=== PATIENT | male | born 1960 | race Caucasian/White ===

== ENCOUNTER 2024-07-05 11:33 | Day surgery (SDC) | payer OTHER ==
[2024-07-05] MEDS: SODIUM CHLORIDE 500 ML IV ONE (13:27)
[2024-07-05 15:45] VITALS: TEMP 98.5
[2024-07-05 16:00] VITALS: BP 129/73; PULSE 68; RESP 18
== END 2024-07-05 16:04 | disposition home or self-care (01) ==
LOC: JONCCHEMO 11:33 → J7W 11:52 → JONCCHEMO 16:04
PROVIDERS: ATTEND Internal Medicine Hematology & Oncology
PROC: 3E0337Z Introduction of Electrolytic and Water Balance Substance into Peripheral Vein, Percutaneous Approach (ICD-10-PCS; principal; 2024-07-05)
DX: Z51.11 Encounter for antineoplastic chemotherapy (principal); C92.10 Chronic myeloid leukemia, BCR/ABL-positive, not having achieved remission
CPT/HCPCS: 96360; 96361

== ENCOUNTER 2024-07-06 09:36 | Day surgery (SDC) | payer OTHER ==
[2024-07-06] MEDS: IMATINIB MESYLATE 100 MG TABLET PO ONE (10:00)
[2024-07-06] MEDS ORDERED: IMATINIB MESYLATE 100 MG TABLET PO ONE (10:00)
[2024-07-06] MEDS: SODIUM CHLORIDE 500 ML IV ONE (10:22)
[2024-07-06 15:54] VITALS: RESP 20; TEMP 98.2
[2024-07-07 08:56] VITALS: BP 118/67; PULSE 64
== END 2024-07-06 13:40 | disposition home or self-care (01) ==
LOC: J7W 09:36 → JONCNONCHE 09:36
PROVIDERS: ATTEND Internal Medicine Hematology & Oncology
PROC: 3E0337Z Introduction of Electrolytic and Water Balance Substance into Peripheral Vein, Percutaneous Approach (ICD-10-PCS; principal; 2024-07-06)
DX: C92.10 Chronic myeloid leukemia, BCR/ABL-positive, not having achieved remission (principal)
CPT/HCPCS: 96360; 96361

== ENCOUNTER 2024-07-07 09:30 | Day surgery (SDC) | payer OTHER ==
[2024-07-07] MEDS: SODIUM CHLORIDE 500 ML IV SCH (10:01)
[2024-07-07] MEDS: IMATINIB 100 MG PO ONE (10:13)
[2024-07-07 14:54] VITALS: RESP 20; TEMP 98.2
[2024-07-07 15:19] VITALS: BP 120/68; PULSE 67
== END 2024-07-07 14:00 | disposition home or self-care (01) ==
LOC: JONCNONCHE 09:30 → J7W 09:31 → JONCNONCHE 14:00
PROVIDERS: ATTEND Internal Medicine Hematology & Oncology
PROC: 3E033GC Introduction of Other Therapeutic Substance into Peripheral Vein, Percutaneous Approach (ICD-10-PCS; principal; 2024-07-07)
DX: Z51.11 Encounter for antineoplastic chemotherapy (principal); C92.10 Chronic myeloid leukemia, BCR/ABL-positive, not having achieved remission
CPT/HCPCS: 96360; 96361

== ENCOUNTER 2025-03-12 09:05 | Day surgery (SDC) | payer OTHER ==
[2025-03-12] MEDS: IRON SUCROSE INJECTION 200 MG in SODIUM CHLORIDE 100 ML IVPB ONE (09:26)
[2025-03-12 09:36] VITALS: RESP 20; TEMP 97.9
[2025-03-12 10:06] VITALS: BP 106/67; PULSE 59
== END 2025-03-12 10:20 | disposition home or self-care (01) ==
LOC: J7W 09:05 → JONCNONCHE 09:05
PROVIDERS: ATTEND Internal Medicine Hematology & Oncology
PROC: 3E033GC Introduction of Other Therapeutic Substance into Peripheral Vein, Percutaneous Approach (ICD-10-PCS; principal; 2025-03-12)
DX: D50.9 Iron deficiency anemia, unspecified (principal)
CPT/HCPCS: 96365; J1756

== ENCOUNTER 2025-03-19 11:48 | Day surgery (SDC) | payer OTHER ==
[2025-03-19] MEDS: IRON SUCROSE INJECTION 200 MG in SODIUM CHLORIDE 100 ML IVPB ONE (12:43)
[2025-03-19 18:52] VITALS: BP 140/68; PULSE 70; RESP 20; TEMP 99.2
== END 2025-03-19 19:21 | disposition home or self-care (01) ==
LOC: JONCCHEMO 11:48
PROVIDERS: ATTEND Internal Medicine Hematology & Oncology
PROC: 3E033GC Introduction of Other Therapeutic Substance into Peripheral Vein, Percutaneous Approach (ICD-10-PCS; principal; 2025-03-19)
DX: D64.9 Anemia, unspecified (principal); C90.00 Multiple myeloma not having achieved remission
CPT/HCPCS: J1756

== ENCOUNTER 2025-03-26 10:22 | Day surgery (SDC) | payer OTHER ==
[2025-03-26] MEDS: IRON SUCROSE INJECTION 200 MG in SODIUM CHLORIDE 100 ML IVPB ONE (10:31)
[2025-03-26 17:27] VITALS: TEMP 98.2
[2025-03-26 17:29] VITALS: BP 114/68; PULSE 62; RESP 18
== END 2025-03-26 11:40 | disposition home or self-care (01) ==
LOC: JONCNONCHE 10:22 → J7W 10:27 → JONCNONCHE 11:40
PROVIDERS: ATTEND Internal Medicine Hematology & Oncology
PROC: 3E033GC Introduction of Other Therapeutic Substance into Peripheral Vein, Percutaneous Approach (ICD-10-PCS; principal; 2025-03-26)
DX: D50.9 Iron deficiency anemia, unspecified (principal)
CPT/HCPCS: 96365; J1756

== ENCOUNTER 2025-04-02 09:29 | Day surgery (SDC) | payer OTHER ==
[2025-04-02] MEDS: IRON SUCROSE INJECTION 200 MG in SODIUM CHLORIDE 100 ML IVPB ONE (09:51)
[2025-04-02 15:38] VITALS: RESP 18; TEMP 98.9
[2025-04-02 15:53] VITALS: BP 110/68; PULSE 58
== END 2025-04-02 11:50 | disposition home or self-care (01) ==
LOC: JONCNONCHE 09:29 → J7W 09:31 → JONCNONCHE 11:50
PROVIDERS: ATTEND Internal Medicine Hematology & Oncology
PROC: 3E033GC Introduction of Other Therapeutic Substance into Peripheral Vein, Percutaneous Approach (ICD-10-PCS; principal; 2025-04-02)
DX: D50.9 Iron deficiency anemia, unspecified (principal)
CPT/HCPCS: 96365; J1756